=== PATIENT | female | born 1960 | race African-American/Black ===

== ENCOUNTER 2021-01-01 08:18 | Day surgery (SDC) | payer OTHER ==
[~2021-01-01 08:18] MED LIST: KETOROLAC 30 MG/ML INJ IV SCH
[2021-01-01] MEDS ORDERED: Ringers Lactate 1,000 ML IV ONE (09:50)
[2021-01-01] MEDS ORDERED: EPINEPHRINE/PF 1 MG/ML AMP ONE (09:57)
[2021-01-01] MEDS ORDERED: propofoL 200 MG/20 ML VIAL IV ONE ×2 (09:58→10:01)
[2021-01-01] MEDS ORDERED: LIDOCAINE 1% MPF 5 ML VIAL ONE (10:01)
--- NOTE | 2021-01-01 10:05 | ENDO RPT ---
[address], [address] EGD PROCEDURE REPORT EXAM DATE: 01/01/2021 PATIENT NAME: Julisa Carson MR#: [id number] BIRTHDATE: 1960 ATTENDING: Marty Stevenson DR STATUS: outpatient SENIOR APPLICATION SECURITY CONSULTANT: Lisette Melara RN and Joy Sewell CST INDICATIONS: The patient is a 60 yr old Female here for an EGD due to foreign body PROCEDURE PERFORMED: EGD with foreign body removal MEDICATIONS: Per Anesthesia. TOPICAL ANESTHETIC: none CONSENT: The patient understands the risks and benefits of the procedure and understands that these risks include, but are not limited to: sedation, allergic reaction, infection, perforation and/or bleeding. Alternative means of evaluation and treatment include, among others: physical exam, x-rays, and/or surgical intervention. The patient elects to proceed with this endoscopic procedure. DESCRIPTION OF PROCEDURE: During intra-op preparation period all mechanical medical equipment was checked for proper function. Hand hygiene and appropriate measures for infection prevention was taken. Procedure, possible complications, and alternatives including but not limited to the possibility of bleeding, perforation, tear, infection, sepsis, need for surgery, need for blood transfusion, and anesthesia related complications were explained to the patient. After the risks, benefits and alternatives of the procedure were thoroughly explained, Informed consent was verified, confirmed and timeout was successfully executed by the treatment team. The patient was placed in the left lateral position. The patient was anesthetized with topical anesthesia. Through the anesthetized oropharyngeal area, the scope was passed without any difficulty. The EG-[id number] ([id number]) endoscope was introduced through the mouth and advanced to the bulb of duodenum. Retroflexed views revealed a small hiatal hernia. The gastroscope was then slowly withdrawn and removed. A collection of food debris was found in the mid esophagus. consitent with bone fragment The foreign body was removed and sent to pathology. There was inflammation and minor trauma to the esophagus, but no obvious perforation, mucosae was hyperemic. ADVERSE EVENTS: There were no complications. IMPRESSIONS: A collection of food debris was found in the mid esophagus RECOMMENDATIONS: 1. acid suppression therapy 2. avoid NSAIDS 3. full liquid diet for 3 days, then soft diet for 1 week, then resume diet 4. follow-up: office 2 week(s) 5. avoid NSAIDS REPEAT EXAM: Marty Stevenson DR eSigned: Marty Stevensno DR 01/01/2021 10:05 AM cc: CPT CODES: ICD9 CODES: PATIENT NAME: Julisa Carson MR#: [id number]
--- NOTE | 2021-01-01 11:06 | RAD REPORT ---
EXAM DESCRIPTION: RAD - Chest Single View - 01/01/2021 10:59 am CLINICAL HISTORY: S P FOREIGN BODY REMOVAL COMPARISON: CHEST SINGLE VIEW dated 02/07/2013; CHEST SINGLE VIEW dated 06/06/2012; CHEST SINGLE VIEW dated 12/01/2009; CHEST SINGLE VIEW dated 10/21/2009 FINDINGS: No evidence of edema or pneumonia. Mild cardiomegaly. Apical scarring.No acute osseous abn ormality. No significant pleural effusions or pneumothorax. IMPRESSION: No acute cardiopulmonary disease.
[2021-01-01] MEDS ORDERED: KETOROLAC 30 MG/ML INJ ONE (11:20)
[2021-01-01 11:26] VITALS: TEMP 97.4; O2SAT 98
[2021-01-01 12:58] VITALS: BP 101/64
--- NOTE | 2021-01-01 22:36 | HP ---
Date of Admission: 01/01/2021 Brief History Of Present Illness: The patient is a 60-year-old female, who presents to [facility] after ingesting what she describes as pink feet and thinks she may have ingested a bone. She started having difficulty swallowing and painful swallowing up in her neck. 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 No gross esophag eal perforation was noted. 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 Past Surgical History: Includes cholecystectomy; heart valve replacement, not on anticoagulation; br ain surgery for Budd-Chiari malformation; smoking. She denies smoking. Alcohol recreationally only. Denies any recreational drug use. Medications: None. Allergies: NO KNOWN DRUG ALLERGIES. Review of Systems: A 10-point review of systems other than HPI, she denies anything other than swallowing difficulty and pain. She has never had similar episodes before in the past. Physical Examination: At the time of my examination: HEENT: She is normocephalic. Her sclerae are anicteric. Mucous members are moist. Her oropharynx is clear. She has poor dentition. Neck: Supple without JVD. Chest: Normal expansion and excursion. Cardiovascular: Regular rate and rhythm. Pulmonary: Clear to auscultation bilaterally. Abdomen: Soft, nontender. Extremities: No clubbing, cyanosis, or edema. Skin: Warm and dry. Laboratory Data: She did not have any laboratory exam from [facility], and her CT sca n was performed at [facility] as above, which showed a radiodensity, compatible with i ngested bone lodged within the cervical esophagus at level C7-T2, measuring 1.3 x 0.4 x 2.5 cm. No g ross esophageal perforation is evident, and the congenital vascular variant as described above. Assessment And Plan: This is a 60-year-old female, who comes in with a foreign body ingestion, likel y a bone in the cervical, upper thoracic esophagus. 1.I have explained risks, benefits, and alternatives of esophagogastroduodenoscopy with foreign body retrieval, including but not limited to bleeding, infection, esophageal perforation, airway obstruct ion, stroke, cerebrovascular accident, blood clots, heart attacks, need for further operation and pro cedures. The patient agrees to proceed as indicated. JOAQUIN/ASTRID Voice ID: [id number]
== END 2021-01-01 12:25 | disposition home or self-care (01) ==
LOC: ER 08:18 → PACU 09:07
PROVIDERS: ATTEND Surgery
PROC: 0DC28ZZ Extirpation of Matter from Middle Esophagus, Via Natural or Artificial Opening Endoscopic (ICD-10-PCS; principal; 2021-01-01 10:15)
DX: T18.128A Food in esophagus causing other injury, initial encounter (principal); K44.9 Diaphragmatic hernia without obstruction or gangrene
CPT/HCPCS: 88300; 71045; 43247; J2704; J7120; J0171